=== PATIENT | male | born 1975 | race Two or more races ===

== ENCOUNTER 2022-10-28 23:21 | Emergency (ER) | payer SELFPAY ==
[~2022-10-28] VITALS: Ht 165.1 cm; Wt 91.0 kg
[2022-10-28 23:32] VITALS: BP 164/114
[2022-10-29] MEDS ORDERED: ACETAMINOPHEN 325MG TABLET PO ONE (02:45)
== END 2022-10-29 04:43 | disposition home or self-care (01) ==
LOC: ER 23:21
DX: S20.219A Contusion of unspecified front wall of thorax, initial encounter (principal); R07.9 Chest pain, unspecified; I10 Essential (primary) hypertension; V43.92XA Unspecified car occupant injured in collision with other type car in traffic accident, initial encounter; Y93.89 Activity, other specified; Y92.410 Unspecified street and highway as the place of occurrence of the external cause
CPT/HCPCS: 71045; 93005; 99283

== ENCOUNTER 2025-03-23 23:46 | Emergency (ER) | payer OTHER ==
[~2025-03-23] VITALS: Ht 165.1 cm; Wt 87.3 kg
[2025-03-23 23:51] VITALS: TEMP 36.9; O2SAT 99
[2025-03-24] MEDS: KETOROLAC 15MG/ML VIAL IM ONE (01:12)
[2025-03-24] MEDS: LIDOCAINE 5% PATCH TOP SCH (01:13)
[2025-03-24] MEDS ORDERED: NAPR-1176 MT (01:18)
[2025-03-24] MEDS ORDERED: LIDO-53 TP (01:19)
[2025-03-24 01:44] VITALS: BP 150/89; PULSE 75; RESP 14; O2SAT 100
== END 2025-03-24 01:48 | disposition home or self-care (01) ==
LOC: ER 23:57
DX: M54.9 Dorsalgia, unspecified (principal); M54.2 Cervicalgia; I10 Essential (primary) hypertension; M25.512 Pain in left shoulder; V49.3XXA Car occupant (driver) (passenger) injured in unspecified nontraffic accident, initial encounter; Y93.89 Activity, other specified; Y92.89 Other specified places as the place of occurrence of the external cause; Y99.8 Other external cause status
CPT/HCPCS: 99283; 73030; J1885